=== PATIENT | male | born 1985 | race American Indian/Alaskan Native ===

== ENCOUNTER 2018-01-23 16:45 | Emergency (ER) | payer OTHER ==
[2018-01-23 17:18] VITALS: BMI 21.9
[2018-01-23 17:22] VITALS: RESP 18; TEMP 98.1
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
[2018-01-23 21:01] VITALS: BP 103/76; PULSE 80; O2SAT 99
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
== END 2018-01-23 21:03 | disposition home or self-care (01) ==
LOC: MERGE 16:45 → ED 16:45
DX: S00.83XA Contusion of other part of head, initial encounter (principal); V49.59XA Passenger injured in collision with other motor vehicles in traffic accident, initial encounter; Y92.410 Unspecified street and highway as the place of occurrence of the external cause